=== PATIENT | male | born 1980 | race Caucasian/White ===

== ENCOUNTER 2020-01-26 06:50 | Day surgery (SDC) | payer BC ==
[~2020-01-26] VITALS: Ht 177.8 cm; Wt 93.0 kg
[~2020-01-26 06:50] MED LIST: NO MED; PREDNISONE10 MG PO
[2020-01-26 07:28] VITALS: BP 136/83; PULSE 71; TEMP 97.7
--- NOTE | 2020-01-26 07:37 | NUR ---
TO RM 2 AT 0707- CALL LIGHT IN REACH WILL TAKE PATIENT HOME UPON DISCHARGE
[2020-01-26 10:10] VITALS: BP 139/46; PULSE 55; TEMP 98.3
--- NOTE | 2020-01-26 10:10 | NUR ---
TO RM 2 PER CART FROM OR. NONRESPONSIVE WITH ORAL AIRWAY IN PLACE. B.HARRIS CABLE INSTALLER REPAIRER HELPER AT BEDSIDE TILL AIRWAY REMOVED. RUBIO SET ON BILAT ARMS OVER INCISION SITES. NO GRIMACE OR SIGNS OF PAIN. O2 SAT 100% ON MASK.
[2020-01-26 10:25] VITALS: BP 139/53; PULSE 16
--- NOTE | 2020-01-26 10:25 | NUR ---
AWAKE AND TALKING TO STAFF. RECEIVED WATER. DC'D MASK. O2 SAT 100% ON ROOM AIR.
[2020-01-26 10:40] VITALS: BP 146/66; PULSE 73
--- NOTE | 2020-01-26 10:40 | NUR ---
RECEIVED MUFFIN AND BROUGHT PATIENT COFFEE.
[2020-01-26 10:50] VITALS: BP 158/75; PULSE 57
--- NOTE | 2020-01-26 10:50 | NUR ---
INCISION L ARM DRAINING. HELD PRESSURE OVER INCISION AND CLEANED UP ARM. COVERED WITH DRESSING AND TAPED.
[2020-01-26 11:05] VITALS: BP 159/79; PULSE 58
--- NOTE | 2020-01-26 11:05 | NUR ---
ATE 50% OF MUFFIN.
--- NOTE | 2020-01-26 11:20 | NUR ---
AMBULATED TO BATHROOM. VOIDED AND AMBULATED BACK RM
--- NOTE | 2020-01-26 11:30 | NUR ---
RECEIVED DISCHARGE INSTRUCTIONS AND VERBALIZED UNDERSTANDING. DISCONTINUED IV AND INT- CATHETER INTACT. PATIENT GETTING DRESSED. PATIENT TEXTED TO GET THE CAR.
--- NOTE | 2020-01-26 11:40 | NUR ---
DISCHARGED PER WC BY NURSING STAFF TO PRIVATE CAR IN CARE OF LAITH.
== END 2020-01-26 12:00 | disposition home or self-care (01) ==
LOC: SDCO 06:50
DX: D17.21 Benign lipomatous neoplasm of skin and subcutaneous tissue of right arm (principal); D17.22 Benign lipomatous neoplasm of skin and subcutaneous tissue of left arm; D17.5 Benign lipomatous neoplasm of intra-abdominal organs; Z88.0 Allergy status to penicillin; Z20.828 Contact with and (suspected) exposure to other viral communicable diseases
CPT/HCPCS: J0690; J2704; J3010; J7120

== ENCOUNTER → 2023-10-14 | Outpatient (CLI) | payer BC ==
[~2023-10-14] MED LIST changes: +Triamcinolone 40 MG/ML 1 ML VIAL IJ SCH
== END ==
LOC: COL.RAD 11:48
DX: G57.02 Lesion of sciatic nerve, left lower limb (principal)
CPT/HCPCS: J0665; J3301